=== PATIENT | female | born 1975 | race African-American/Black ===

== ENCOUNTER 2022-03-24 08:30 | Emergency (ER) | payer OTHER ==
[~2022-03-24] VITALS: Ht 157.5 cm; Wt 55.8 kg
[2022-03-24] MEDS ORDERED: PROMETRIUM200 MG PO (08:54)
[2022-03-24] MEDS ORDERED: KETO10TA2 PO (11:24)
[2022-03-24] MEDS ORDERED: NORFLEX100MG PO (11:24)
== END 2022-03-24 12:00 | disposition home or self-care (01) ==
LOC: ER 08:30
DX: S10.83XA Contusion of other specified part of neck, initial encounter (principal); V49.9XXA Car occupant (driver) (passenger) injured in unspecified traffic accident, initial encounter; Y93.89 Activity, other specified; Y92.488 Other paved roadways as the place of occurrence of the external cause; M54.2 Cervicalgia; Z88.0 Allergy status to penicillin

== ENCOUNTER 2022-04-16 11:59 | Outpatient (CLI) | payer OTHER ==
[~2022-04-16 11:59] MED LIST: KETO10TA2 PO; NORFLEX100MG PO; PROMETRIUM200 MG PO
== END 2022-04-16 12:13 | disposition home or self-care (01) ==
LOC: RAD 11:59
PROVIDERS: ATTEND Physical Medicine & Rehabilitation
DX: M54.50 Low back pain, unspecified (principal); M54.16 Radiculopathy, lumbar region; M54.2 Cervicalgia; M54.12 Radiculopathy, cervical region
CPT/HCPCS: 72148

== ENCOUNTER 2022-06-08 09:13 | Outpatient (CLI) | payer OTHER | END 2022-06-08 09:24 | disposition home or self-care (01) | LOC: MAMO-SONO 09:13 | PROVIDERS: ATTEND Family Medicine Adult Medicine | DX: Z12.31 Encounter for screening mammogram for malignant neoplasm of breast (principal) ==